=== PATIENT | female | born 1975 | race Caucasian/White ===

== ENCOUNTER 2016-10-21 13:50 | Emergency (ER) | payer MEDICAID ==
[2016-10-21 15:44] VITALS: BP 110/64
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
== END 2016-10-21 16:11 | disposition home or self-care (01) ==
LOC: FB.ED 13:50
DX: S06.0X0A Concussion without loss of consciousness, initial encounter (principal); S02.81XA Fracture of other specified skull and facial bones, right side, initial encounter for closed fracture; J84.10 Pulmonary fibrosis, unspecified; J44.9 Chronic obstructive pulmonary disease, unspecified; W22.01XA Walked into wall, initial encounter
CPT/HCPCS: 36415; 70450; 72125; 80053; 85025; 99284; G0480; 70486

== ENCOUNTER 2017-04-05 02:35 | Emergency (ER) | payer MEDICAID ==
[2017-04-05] MEDS ORDERED: Sodium Chloride 0.9% 1,000 ML IV ONE ×2 (02:39→04:05)
[2017-04-05] MEDS ORDERED: Pantoprazole 40 MG Vial IVPUSH ONE (02:44)
[2017-04-05] MEDS ORDERED: Ondansetron 4 MG/2 ML SDV IVPUSH ONE (02:44)
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
[2017-04-05] MEDS ORDERED: Thiamine 200 MG/2 ML MDV IM STA (02:50)
[2017-04-05] MEDS ORDERED: Potassium Chloride 20 MEQ Tab.ER PO ONE (03:37)
[2017-04-05] MEDS ORDERED: Sodium Chloride 0.9% 1,000 ML IV SCH (05:05)
[2017-04-05 13:01] VITALS: BP 110/67
== END 2017-04-05 12:55 | disposition home or self-care (01) ==
LOC: FB.ED 02:35
DX: F10.129 Alcohol abuse with intoxication, unspecified (principal); E87.6 Hypokalemia; E86.0 Dehydration; Y90.8 Blood alcohol level of 240 mg/100 ml or more
CPT/HCPCS: 36415; 80048; 80076; 82150; 84702; 85025; 85610; 96361; 96372; 96374; 96375; 99285; A9270; C9113; G0480; J2405; J3411; J7040; J7030

== ENCOUNTER 2019-04-22 13:14 | Emergency (ER) | payer MEDICAID ==
[2019-04-22] MEDS ORDERED: Ondansetron 4 MG Tab.DIS PO ONE (13:15)
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
[2019-04-22] MEDS ORDERED: Sodium Chloride 0.9% 10 ML Syringe FLUSH PRN (13:41)
[2019-04-22] MEDS ORDERED: Sodium Chloride 0.9% 1,000 ML IV ONE (13:43)
[2019-04-22] MEDS ORDERED: Morphine 2 MG/ML Syringe IVPUSH ONE (13:44)
[2019-04-22] MEDS ORDERED: Ondansetron 4 MG/2 ML SDV IVPUSH ONE (13:44)
[2019-04-22] MEDS ORDERED: Iopamidol 755 Mg/ML 100 ML Bottle IV ONE (16:46)
[2019-04-22 20:37] VITALS: BP 93/54; PULSE 55
== END 2019-04-22 18:45 | disposition home or self-care (01) ==
LOC: FB.ED 13:14
DX: E86.0 Dehydration (principal); K52.9 Noninfective gastroenteritis and colitis, unspecified; F17.200 Nicotine dependence, unspecified, uncomplicated
CPT/HCPCS: 36415; 74177; 80053; 81001; 83690; 83735; 84702; 85025; 86140; 96361; 96374; 96375; 99284; A9270; J2270; J2405; J7030; Q9967

== ENCOUNTER 2023-02-17 13:21 | Emergency (ER) | payer MEDICAID ==
[2023-02-17] MEDS ORDERED: Morphine 4 MG/ML VIAL IVPUSH ONE (13:42)
[2023-02-17] MEDS ORDERED: Ondansetron 4 MG/2 ML SDV IVPUSH ONE (13:54)
[2023-02-17] MEDS ORDERED: Sodium Chloride 0.9% 1,000 ML IV SCH (14:00)
[2023-02-17 14:19] LABS: HEMOGLOBIN 14.6 g/dL (11.4-15.5); MEAN CORPUSCULAR HGB CONC 34.1 g/dL (31.9-34.8); MEAN PLATELET VOLUME 8.2 fL (7.1-12.4)
[2023-02-17 14:22] LABS: HEMATOCRIT 42.7 % (34.2-48.2); MEAN CORPUSCULAR VOLUME 93.9 fL (76.7-100.5); PLATELET COUNT,PLT 234 x10(3)uL (151-488); RED BLOOD CELL COUNT 4.55 x10(6)uL (3.60-5.20)
[2023-02-17 14:23] LABS: BLOOD UREA NITROGEN,BUN 6 mg/dL (7-18); BUN/CREATININE RATIO 7.5 (9-20); CALCIUM 8.8 mg/dL (8.6-10.2); CARBON DIOXIDE,CO2 26 mmol/L (21-32); CHLORIDE,CL 102 mmol/L (100-110); CREATININE 0.8 mg/dL (0.55-1.02); EST CRCL DRUG DOSING (CG) 76.68 mL/min; ESTIMATED GFR 93 mL/min (>60); GLUCOSE RANDOM 114 mg/dL (80-116); POTASSIUM,K 3.5 mmol/L (3.5-5.3); SODIUM,NA 134 mmol/L (135-145)
[2023-02-17 14:29] LABS: ALANINE AMINOTRANSFERASE,ALT 21 U/L (12-36); ALBUMIN 3.1 g/dL (3.5-5.2); ALKALINE PHOSPHATASE 78 IU/L (56-112); ASPARTATE AMNIOTRANSFERASE,AST 19 IU/L (5-25); BILIRUBIN TOTAL 0.5 mg/dL (0.1-1.3); PROTEIN TOTAL,TP 6.2 g/dL (6.0-8.0)
[2023-02-17 14:30] LABS: INR 1.05 (1.00-1.24); PROTHROMBIN TIME 10.8 sec (9.0-11.1); PTT,PARTIAL THROMBOPLSTIN TIME 22.7 SECONDS (24.4-33.2)
[2023-02-17 14:40] LABS: BAND PERCENT MAN 1 % (0-6); LYMPHOCYTES PERCENT MAN 32 % (13-37); MONOCYTES PERCENT MAN 4 % (4-12); SEG NEUTROPHILS PERCENT MAN 62 % (46-82)
[2023-02-17 14:41] LABS: EOSINOPHILS PERCENT MAN 1 % (0-5)
[2023-02-17] MEDS ORDERED: Acetaminophen/oxyCODONE 325-5 MG Tab PO STA (15:06)
[2023-02-17] MEDS ORDERED: Ketorolac 30 MG/ML SDV IVPUSH ONE (16:22)
[2023-02-17 20:03] VITALS: BP 112/69; PULSE 71
== END 2023-02-17 16:54 | disposition home or self-care (01) ==
LOC: FB.ED 13:21
DX: S52.502A Unspecified fracture of the lower end of left radius, initial encounter for closed fracture (principal); S52.612A Displaced fracture of left ulna styloid process, initial encounter for closed fracture; F17.210 Nicotine dependence, cigarettes, uncomplicated; W01.0XXA Fall on same level from slipping, tripping and stumbling without subsequent striking against object, initial encounter
CPT/HCPCS: 36415; 73110-LT; 80053; 80307; 85025; 85610; 85730; 96374; 96375; 99283-25; A9270-GY; J1885; J2270; J2405; J7030